=== PATIENT | female | born 1980 | race Caucasian/White ===

== ENCOUNTER 2021-05-30 12:49 | Emergency (ER) | payer BC, SELFPAY ==
--- NOTE | ~2021-05-30 | XR_ITS ---
EXAMINATION: XR ankle LT min 3V EXAM DATE: 05/30/2021 13:41 INDICATION: Left ankle pain, injury. TECHNIQUE: Left ankle frontal, lateral and oblique projections obtained and reviewed. There is no pr ior study for comparison. FINDINGS: There is completely posteriorly dislocated talus with respect to the left tibial plafond. T here is sizable posterior tibial tibial plafond fracture. There is a distal fibular metadiaphyseal fr acture with 30 degrees of posterior angulation, anterolateral displacement. Overlying soft tissue swe lling. IMPRESSION: 1. Left talar dome posterior dislocation, posterior tibial plafond displaced fracture. 2. Fibular distal metadiaphyseal fracture with angulation and displacement. 3. Orthopedic consult. Reviewed, dictated and finalized at location A. ERSITY INTERN IMPRESSION: 1. Left talar dome posterior dislocation, posterior tibial plafond displaced f racture. 2. Fibular distal metadiaphyseal fracture with angulation and displacement. 3. Orthopedic consult.
--- NOTE | ~2021-05-30 | XR_ITS ---
EXAMINATION: XR tibia fibula LT 2V EXAM DATE: 05/30/2021 16:06 INDICATION: post-reduction . TECHNIQUE: Frontal, lateral projections left tibia and fibula. There is no prior study for comparis on. FINDINGS: The left talus has been reduced, is now in expected position, also with reduction in displ acement of the posterior tibial plafond fracture fragment and the fibular distal metadiaphyseal fract ure. Proximal aspects of the tibia and fibular shaft also imaged, unremarkable. There is a splint. IMPRESSION: Status post talar reduction. Posterior tibial plafond, distal fibular metaphyseal fractu res. Reviewed, dictated and finalized at location A. 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 Posterior tibial plafond, distal fibu lar metaphyseal fractures.
--- NOTE | ~2021-05-30 | CT_ITS ---
EXAMINATION: CT ankle LT wo con EXAM DATE: 05/30/2021 16:38 INDICATION: left ankle fracture . TECHNIQUE: Spiral CT ankle LT was performed without contrast. Axial, coronal and sagittal images w ere reviewed. The dose-length product (DLP) for this examination was 403.43 mGy-cm. The exposure wa s tailored according to patient size (auto mA exposure control), and iterative reconstruction (ASIR) was used as additional dose reduction technique. Correlation is made to prior x-rays earlier same day . FINDINGS: There is about 5 mm of posterior subluxation of the left talus with respect to the tibial p wai, and about 5 mm posterior displacement of the sizable fracture fragment of the posterior tibia l plafond. There is a transverse fracture through the left fibular distal metaphysis with mild displacement and near-anatomic alignment. There is a tiny calcification between the medial malleolus and the talus probably an acute avulsion f racture with mild widening of the mortise medially indicating disrupted ligament. Small ossifications anterior to the ankle joint with the talus favored as the donor site over the tib ia. The calcaneus, midfoot is unremarkable. IMPRESSION: Mildly posteriorly subluxed left talus with multiple fractures as described above. Reviewed, dictated and finalized at location A. TECH IMPRESSION: Mildly posteriorly subluxed left talus with multiple fractures as d escribed above.
--- NOTE | ~2021-05-30 | XR_ITS ---
EXAMINATION: XR ankle LT 2V EXAM DATE: 05/30/2021 14:39 INDICATION: post reduction. TECHNIQUE: Frontal and lateral projections of the left ankle. Comparison is made to prior examinatio n from earlier same date. FINDINGS: There is still complete posterior dislocation of the left talus. Large portion of the post erior tibial plafond and has been fractured and posteriorly displaced with this. Lateral ankle ligame nts appear to be at least partly intact with the distal aspect of the left fibula dislocated with the talus, posteriorly angulated, posterolaterally displaced at the distal metadiaphyseal fracture. IMPRESSION: 1. Persistent posteriorly dislocated left talus. 2. Tibial plafond and, fibular fractures. Reviewed, dictated and finalized at location A. NER OPERATOR
[2021-05-30 12:42] VITALS: BP 142/83; PULSE 79; RESP 20; TEMP 37.2
[2021-05-30] MEDS: HYDROmorphone HCL INJ (*CRX) 1 MG/ML SYR IV PUSH (14:17)
[2021-05-30] MEDS: ONDANSETRON INJ 4 MG/2 ML VIAL IV PUSH (14:17)
--- NOTE | 2021-05-30 15:03 | ED.LOWEXIN ---
HPI - Extremity Injury (Lower) General Chief Complaint: Extremity Injury, Lower Stated Complaint: left ankle deformity Time Seen by Provider: 05/30/21 13:49 Source: patient Mode of arrival: EMS Limitations: no limitations History of Present Illness HPI Narrative: This is a 40-year-old female that presents the emergency department for left ankle injury sustained just prior to arrival. Reports she was walking down the bleachers and her right ankle rolled. This caused her to catch herself with her left foot and caused an injury to the left ankle. Patient presented via EMS with obvious deformity to the ankle. Denies hitting her head, loss of consciousness, other injuries, or numbness. Related Data Allergies Allergy/AdvReac Type Severity Reaction Status Date / Time Penicillins Allergy Unknown Other Verified 05/30/21 12:52 Sulfa (Sulfonamide Allergy Unknown Other Verified 05/30/21 12:52 Antibiotics) Review of Systems Review of Systems: CONSTITUTIONAL: Denies fever MUSCULOSKELETAL: Reports joint pain, and myalgia. NEUROLOGIC: Denies numbness All systems reviewed & are unremarkable except as noted in HPI and below PMFSH Past Medical History Medical History (Updated 05/30/21 @ 17:27 by Kelly Kingston PA-C) History of anxiety Social History Social History (Updated 05/30/21 @ 15:07 by Kelly Kingston PA-C) Substance use: never Exam Narrative: GENERAL: Well-appearing, well-nourished, and in mild acute distress due to pain. HEAD: Normocephalic, atraumatic. EYES: EOMI. EXTREMITIES: Normal range of motion, except decreased ROM in the left ankle with obvious deformity. Normal DP pulses. Normal sensation SKIN: Warm, dry, no rash. NEURO: No focal deficits. Alert and oriented x3. PSYCH: Normal mood and affect Course Consultations Consultation #1: Spoke with Dr. Abraham about patient and work-up. Would like CT scan of the ankle obtained. Patient will call on Tuesday to make an appointment, likely surgery on Tuesday. Date: 05/30/21 Time: 16:26 Vital Signs Vital signs: Vital Signs Temperature 98.9 F 05/30/21 12:42 Pulse Rate 79 05/30/21 12:42 Respiratory Rate 20 05/30/21 12:42 Blood Pressure 142/83 H 05/30/21 12:42 Temperature 98.9 F 05/30/21 12:42 Pulse Rate 79 05/30/21 12:42 Respiratory Rate 20 05/30/21 12:42 Blood Pressure 142/83 H 05/30/21 12:42 Procedures Orthopedic Joint Reduction Joint #1: Orthopedic Joint Reduction Date: 05/30/21 Orthopedic Joint Reduction Time: 14:25 Time Out Performed: Yes Side: left Joint Reduction Location: ankle Analgesia: hematoma block Pre-Procedure Neuro Vascular Exam: normal Local Anesthesia: lidocaine 1% Amount of anesthesic used (mL): 3 Technique used: traction/counter-traction Post-reduction neuro exam: intact Post-reduction vascular: intact Post Reduction X-Ray Obtained: Yes Post Reduction X-Ray Results: not reduced Patient Tolerated Procedure: well and no complications Joint #2: Orthopedic Joint Reduction Date: 05/30/21 Orthopedic Joint Reduction Time: 15:30 Time Out Performed: Yes Side: left Joint Reduction Location: ankle Analgesia: other (Valium) Pre-Procedure Neuro Vascular Exam: normal Technique used: traction/counter-traction Post-reduction neuro exam: intact Post-reduction vascular: intact Post Reduction X-Ray Obtained: Yes Post Reduction X-Ray Results: reduced Splint Applied: Yes Patient Tolerated Procedure: well and no complications Orthopedic Splinting/Casting Injury #1: Splinting/Casting Date: 05/30/21 Splinting/Casting Time: 15:30 Side: left Lower Extremity Injury Location: ankle Lower Extremity Immobilizer: posterior splint and stirrup splint Splint: customized in ED OCL: short leg Pre-Procedure Ne
[2021-05-30] MEDS: HYDROmorphone HCL INJ (*CRX) 1 MG/ML SYR 0.5 MG IV PUSH (15:37)
[2021-05-30] MEDS: diazePAM INJ (*CRX) 10 MG/2 ML SYRINGE 5 MG IV PUSH (15:39)
[2021-05-30] MEDS: HYDROcodone/acetaminophen (*CRX) 5-325 MG TABLET 1 TAB PO (17:26)
[2021-05-30 17:59] VITALS: BP 142/88; PULSE 86; RESP 18; O2SAT 98
== END 2021-05-30 18:01 | disposition home or self-care (01) ==
PROVIDERS: Emergency Provider Emergency Medicine
DX: S89.392A Other physeal fracture of lower end of left fibula, initial encounter for closed fracture (principal); S82.872A Displaced pilon fracture of left tibia, initial encounter for closed fracture; X50.9XXA Other and unspecified overexertion or strenuous movements or postures, initial encounter
CPT/HCPCS: 27788; 27825; 27840; 73590; 73600; 73610; 73700; 96374; 96375; 96376; 99285; A9270; J1170; J2405; J3360

== ENCOUNTER → 2021-06-06 00:11 | Outpatient (CLI) | payer BC, SELFPAY ==
[2021-06-06 19:57] LABS: SARS-CoV-2 RNA PCR Negative
== END ==
PROVIDERS: Visit Provider Orthopaedic Surgery
DX: Z01.812 Encounter for preprocedural laboratory examination (principal); Z20.822 Contact with and (suspected) exposure to COVID-19
CPT/HCPCS: C9803; U0003; U0005

== ENCOUNTER 2021-06-10 00:53 | Day surgery (SDC) | payer BC, SELFPAY ==
[2021-06-02 11:47] VITALS: BMI 28.2
--- NOTE | 2021-06-02 11:57 | PC.NURSE ---
Report to the Outpatient Waiting Room, entrance under the green pavilion located off [facility], at time 1300 on date 06/10/21. OR Time: 1500. - You and your visitor will be asked a series of questions to screen for COVID 19 for your protection. - A mask is required within the hospital. - Only one visitor is allowed at this time. Patient visitors will be guided where to wait when not with patient. Preoperative COVID Testing Requirements: No COVID Test needed if: (proof is required; if not received patient will have Rapid Test prior to entry) - Patient has received COVID Vaccine at least 14 days prior to procedure date or - Patient has positive COVID test result within last 90 days of surgery date. COVID Test needed if above criteria is not met If not COVID vaccinated a COVID test must be conducted within 72 hours of surgery and patient is asked to isolate self from time of testing until procedure. You will go to the [facility] for your COVID testing. The [facility] is located at the corner of [address] [facility]. You will only be called if COVID results are positive and your surgeon may reschedule your elective surgery date. Patients may have clear liquids (water, carbonated beverages, clear teas, apple juice) until 3 hours prior to surgery with a maximum of 20 ounces. - No food from midnight until time of surgery - Infants may have breast milk until 4 hours before surgery, infant formula 6 hours prior to surgery. - Children will be allowed to drink immediately following surgery. If applicable, please bring a bottle or sippy cup to assist with drinking. Juice, water, soda, and popsicles are readily available. For infants on formula, please bring formula the day of surgery. Pacifiers are allowed. Take the following medications with a SIP of water the morning of surgery: PAIN PILL (IF NEEDED), VENLAFAXINE, XANAX (IF NEEDED) Medications to discontinue per physician: N/A Date to take last dose: N/A Please no make-up, nail yemeni, hairspray, perfume, deodorant, or body powder the day of surgery. No jewelry (including any body piercings) or valuables the day of surgery, leave them at home. Please take a shower or bath the night before, or the morning of, surgery with an antibacterial soap. Wear comfortable, loose fitting clothing. Children are encouraged to wear pajamas. - Jewelry must be removed prior to entering the operating room. Rings and piercings that are not removed may be cut off. - The hospital will not accept responsibility for valuables. - Please leave all valuables, including medications, at home the day of surgery. If you are going home after surgery, a licensed cat driver must drive you home. - NO public transportation without another adult. - We recommend that an adult stay with you for 24 hours following discharge. - We also recommend that you do not drive, make important decision, drink alcoholic beverages, or take any drugs that were not prescribed by your health care provider for at least 24 hours after your discharge time. For Pediatric surgeries, we recommend two adults accompany the child home (only one inside the building at this time). Follow any additional instructions given to you from your surgeon. Telephone instructions given to JOHANNA KWONG and asked if any additional questions and then verbalized understanding. Patient advised to call surgeon office or pre surgery nurse liaison [phone] if any additional questions.
[2021-06-10] VITALS (22 sets, daily range): BP systolic 126–166; BP diastolic 85–103; PULSE 88–110; RESP 10–20; TEMP 36.4–36.6; O2SAT 88–99
--- NOTE | ~2021-06-10 | XR_ITS ---
EXAMINATION: XR surgery orthopedic DATE: 06/10/2021 12:02 INDICATION: Open reduction left ankle fracture. TECHNIQUE: 4 fluoroscopic images of the ankle were obtained during procedure performed by Dr. Abraham . Radiologist was not present for the imaging or procedure. The amount of fluoroscopy time used miguel g this procedure was 24.6 minutes. COMPARISON: None. FINDINGS: Interval reduction and internal fixation of a mildly comminuted oblique fracture at the distal left f ibular diaphysis with retrograde intramedullary isaak with distal interlocking screw. There is an assoc iated tightrope type syndesmotic fixation across the distal tibiofibular syndesmosis with metallic bu ttons on either side of a lucent tunnel across the metaphyseal region of the tibia and fibula. The po sterior malleolar fracture of the distal tibia is fixed with a pair of anterior to posteriorly direct ed cannulated lag screws. Alignment of the left ankle appears near-anatomic posterior fixation with a congruent ankle mortise. IMPRESSION: 1. Near-anatomic alignment post internal fixation of fractures of the distal left fibular diaphysis a nd posterior malleolus of the left tibia. Reviewed, dictated and finalized at location A. CAN TENDER IMPRESSION: 1. Near-anatomic alignment post internal fixation of fractures of the distal le ft fibular diaphysis and posterior malleolus of the left tibia.
--- NOTE | 2021-06-10 07:14 | WPDHPUPDATE1 ---
History and Physical Update Update Date/Time: 06/10/21 07:14 History and Physical has been reviewed, including an updated exam of the patient. There are NO changes in the patient's condition. Risks, benefits, and alternatives have been discussed and questions answered. Patient agrees to proceed with procedure.
[2021-06-10] MEDS: LACTATED RINGERS 1,000 ML 30 ML IV CONT ×3 (08:30→13:33)
--- NOTE | 2021-06-10 08:59 | P.PNAN_ITS ---
Anes - Initial Pre Proc Eval Procedure: Operation Date: 06/10/21 10:00 Proposed Procedures p Left Closed Reduction, Possible Open Reduction Left Trimalleolar Ankle Fracture - Robles Abraham MD Date/Time: 06/10/21 08:59 Surgeon: Robles Abraham MD Pre Op Diagnosis: Lt Trimalleolar Ankle Fracture Patient Data Age: 41 Gender: F Height: 1.68 m Weight: 82.4 kg Last Vital Signs Temp 36.6 C 06/10/21 08:53 Pulse 95 06/10/21 08:53 Resp 20 06/10/21 08:53 BP 142/90 H 06/10/21 08:53 Pulse Ox 95 06/10/21 08:53 Allergies Allergy/AdvReac Type Severity Reaction Status Date / Time iodine Allergy Severe Swelling Verified 06/10/21 08:02 shellfish derived Allergy Severe Anaphylaxis Verified 06/08/21 10:07 strawberry Allergy Severe Anaphylaxis Verified 06/10/21 08:03 Penicillins Allergy Unknown Gastrointestinal Verified 06/08/21 10:07 Upset Sulfa (Sulfonamide Allergy Unknown Gastrointestinal Verified 06/08/21 10:07 Antibiotics) Upset Home Medications Medication Instructions Recorded Confirmed Type hydrocodone-acetaminophen 1 tablet PO Q6H PRN #14 tablet 05/30/21 06/10/21 Rx alprazolam [Xanax] 0.25 mg PO HS PRN 06/02/21 06/10/21 History venlafaxine 150 mg PO DAILY 06/02/21 06/10/21 History Patient hx anesthesia problems: none Family hx anesthesia problems: post op nausea/vomiting Results Review: All pre-operative results and documents have been reviewed as part of the pre-operative evaluation. [facility], [facility] Past Medical History Medical History History of anxiety Hx of migraines Surgical History Surgical History Hx of section x2 Social History Social History Alcohol intake: current Drinks per week: 3 Substance use: never Substance use type: does not use Living arrangements: with family Gender identity (if verbalized by the patient): Female Spiritual care concerns: No Anes - Eval Final PreProcedure Day of Procedure 06/10/21 08:59 Patient weight: overweight Heart: regular rate and rhythm Lungs: clear to auscultation Airway: Mallampati scale class II Neurological: alert and oriented Last oral intake: >/= 8 hours ASA classification: II Emergent: no Anesthetic plan: proceed Anesthesia type and monitoring: general LMA and standard monitoring Results Review: All pre-operative results and documents have been reviewed as part of the pre-operative evaluation. Informed Consent: The patient's anesthetic plan and its attendant risks and benefits were discussed with the patient/family/POA. Questions were solicited and answers provided to the satisfaction of the patient/family/POA.
[2021-06-10] MEDS: CELECOXIB 200 MG CAPSULE PO (09:12)
[2021-06-10] MEDS: ACETAMINOPHEN 500 MG TABLET 1000 MG PO (09:12)
[2021-06-10] MEDS: ceFAZolin 2 GM/D5W 50 ML 2 GM/50 ML BAG IVPB (10:04)
[2021-06-10] MEDS: BUPIVACAINE HCL 0.5% PF 30 ML VIAL INFILTRATE (10:38)
--- NOTE | 2021-06-10 12:33 | SUR.PHASEI ---
1230 dr potter at bedside to place a block in lt leg
--- NOTE | 2021-06-10 12:34 | WPDANESPNB ---
Anes - Peripheral Nerve Block Date/Time: 06/10/21 12:34 I have discussed with the patient/family/POA the placement of a peripheral nerve block for post-operative pain management, including associated risks, benefits, complications, and side effects. Alternative methods of post-operative analgesia were detailed. Questions were solicited and answers provided to the satisfaction of the patient/family/POA. Time-Out: A pre-procedural Time-Out was completed immediately before starting the procedure and confirmed: Patient Identification, Site, Procedure, Patient Position and the Availability of Requisite Equipment. Clinical Indications: Acute post-operative pain management requested by the operative surgeon. Nerve Block Insertion Note Anes-nerve block: posterior fossa sciatic left and other (Saphenous left) Patient position: supine Skin prep: chlorhexidine Needle: 22 gauge, stimulating, insulated echogenic needle. Needle length: 80 mm Technique: nerve stimulation lost at (mA) (0.3) Injectate: bupivacaine 0.5% with epi 5 mcg/ml (20/10ml no epi) and dexamethasone (mg) (4mg) Observations: tolerated well Complications: none Procedure start time:: 1228 Procedure end time:: 1232
[2021-06-10] MEDS: fentaNYL CITRATE INJ (*CRX) 100 MCG/2 ML VIAL 25 MCG IV PUSH ×4 (12:50→13:21)
--- NOTE | 2021-06-10 13:09 | W.PM.PROC2 ---
Procedure Note - Detailed Date of Procedure 06/10/21 Pre-op Diagnosis Lt Ankle Fracture/Dislocation Post-op Diagnosis same Procedure Performed ORIF LEFT ANKLE FRACTURE DISLOCATION WITH SYNDESMOTIC TIGHTROPE FIXATION. Surgeon Robles Abraham MD Anesthesia general Description of Procedure THE PATIENT WAS TAKEN TO THE OR. THE LEFT LEG WAS PREPPED AND DRAPED IN THE NORMAL FASHION. AN INCISION WAS MADE AT THE DISTAL FIBULA TIP. A GUIDE PIN WAS INSERTED USING FLUOROSCOPY AND BRIDGING THE FRACTURE FRAGMENTS. A REAMER WAS USED TO REAM THE PROXIMAL AND DISTAL FRACTURE FRAGMENTS. A 13 X 130 MM FIBULAR ROSI WAS INSERTED AND LOCKED BOTH PROXIMALLY AND DISTALLY. NEXT A TIGHTROPE IMPLANT WAS INSERTED THROUGH THE ROSI AND OUT THE MEDIAL CORTEX OF THE TIBIA. THE COMPONENT WAS TIGHTENED WITH THE ANKLE IN NEUTRAL FLEXION. C ARM WAS USED THE IMAGE THE ANKLE AND IT WAS FOUND THAT HARDWARE WAS IN GOOD POSITION AND THE SYNDESMOSIS AND FIBULA FRACTURE WAS REDUCED WELL. NEXT, 2 CANNULATED 4.0 SCREWS WERE PLACED FROM ANTERIOR TO POSTERIOR SECURING THE POSTERIOR MALLEOLUS IN ANATOMIC POSITION. C ARM WAS USED THE CONFIRM THE POSITION OF BOTH SCREWS. NEXT THE WOUNDS WERE WASHED AND 2-0 SUTURES AND 3-0 SUTURES WERE USED TO APPROXIMATED THE WOUNDS. STAPLE WERE USED TO CLOSE THE SKIN. WOUNDS WERE WASHED THEN PLACED IN A STERILE DRESSING, THEN A PLASTER SPLINT WAS PLACED.. PATIENT WAS EXTUBATED AND SENT TO RECOVERY ROOM IN STABLE CONDITION.
[2021-06-10] MEDS: oxyCODONE HCL (*CRX) 5 MG TAB IR PO (13:52)
--- NOTE | 2021-06-10 14:16 | SUR.PHASEII ---
pt visitor at bedside
--- NOTE | 2021-06-10 15:27 | SUR.PHASEII ---
pt is desating while on RA. This nurse called md potter and he ordered a breathing tx. pt is on 1L NC and desats to 88 on RA.
[2021-06-10] MEDS: ALBUTEROL SULFATE NEB 2.5 MG/3 ML INH INHALATION (15:36)
--- NOTE | 2021-06-10 15:37 | SUR.PHASEII ---
RT called for breathing treatment. pt sleepy but oriented and ambulates well NWB to WC and to the bathroom.
== END 2021-06-10 16:40 | disposition home or self-care (01) ==
PROVIDERS: PCP Physician Assistant; Visit Provider Orthopaedic Surgery
PROC: (CPT 27829; principal; 2021-06-10 10:00)
DX: S82.852A Displaced trimalleolar fracture of left lower leg, initial encounter for closed fracture (principal); S93.432A Sprain of tibiofibular ligament of left ankle, initial encounter; X58.XXXA Exposure to other specified factors, initial encounter; F41.9 Anxiety disorder, unspecified; G89.18 Other acute postprocedural pain
CPT/HCPCS: 27829; 27822; 64450; 64445; 94640; A9270; C1713; C1769; J0690; J1100; J2250; J2270; J2405; J2704; J3010; J7120